=== PATIENT | female | born 1960 | race Caucasian/White ===

== ENCOUNTER 2021-05-26 15:28 | Emergency (ER) | payer BC, OTHER ==
--- NOTE | 2021-05-26 16:19 | EDM.PDOC ---
ED HPI GENERAL MEDICAL PROBLEM - General Chief Complaint: Eye Problems Stated Complaint: FB IN EYE Time Seen by Provider: 05/26/21 15:50 Source of Information: Reports: Patient, RN Notes Reviewed - History of Present Illness INITIAL COMMENTS - FREE TEXT/NARRATIVE: 61 yr old female with onset of FB sensation R eye right after mowing yard, feels like she must have gotten some type of FB into the right eye. Has washed and irrigated eye. FB sensation, quite severe discomfort continues R lateral eye. does not wear contacts. Right Eye Pain Score (Numeric/FACES): 8 - Related Data Allergies Allergy/AdvReac Type Severity Reaction Status Date / Time No Known Allergies Allergy Verified 05/26/21 15:37 Home Meds: Home Meds Pantoprazole [ProTONIX] 40 mg PO DAILY 05/26/21 [History] atorvaSTATin [Lipitor] 20 mg PO DAILY 05/26/21 [History] Past Medical History Cardiovascular History: Reports: High Cholesterol Gastrointestinal History: Reports: GERD, PUD Genitourinary History: Reports: Urinary Incontinence DAIRY NUTRITION SPECIALIST History: Reports: Musculoskeletal History: Reports: Arthritis Neurological History: Reports: Migraines Endocrine/Metabolic History: Reports: Hypothyroidism, Other (See Below) - Past Surgical History HEENT Surgical History: Reports: Oral Surgery, Tonsillectomy GI Surgical History: Reports: Bariatric Procedure, Cholecystectomy Female Surgical History: Reports: Section, Cervical Conization Social & Family History - Tobacco Use Tobacco Use Status *Q: Current Every Day Tobacco User Years of Tobacco use: 45 Packs/Tins Daily: 0.5 - Caffeine Use Caffeine Use: Reports: None - Recreational Drug Use Recreational Drug Use: No - Living Situation & Occupation Living situation: Reports: (), with Family (2 daughters) 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[employer]) ED ROS GENERAL - Review of Systems Review Of Systems: See Below Constitutional: Reports: No Symptoms HEENT: Reports: Eye Pain Respiratory: Reports: No Symptoms Cardiovascular: Reports: No Symptoms GI/Abdominal: Reports: No Symptoms Musculoskeletal: Reports: No Symptoms Skin: Denies: Rash Neurological: Reports: No Symptoms ED EXAM GENERAL W FULL EYE - Physical Exam Exam: See Below General Appearance: Alert, Mild Distress Eye Exam: Bilateral Eye: PERRL Conjunctiva & Sclera: Right: Injected Cornea Exam: Bilateral: Normal Appearance Extraocular Movements: Bilateral: Intact Ears: Normal External Exam Nose: Normal Inspection Head: Atraumatic Neck: Supple Respiratory/Chest: No Respiratory Distress, Lungs Clear Neurological: Alert, Oriented, No Motor/Sensory Deficits Skin Exam: Warm, Dry, Normal Color, No Rash Course - Vital Signs Last Recorded V/S: Last Vital Signs Temp 97 F 05/26/21 15:35 Pulse 71 05/26/21 15:35 Resp 16 05/26/21 15:35 BP 155/89 H 05/26/21 15:35 Pulse Ox 97 05/26/21 15:35 - Orders/Labs/Meds Meds: Medications Discontinued Medications Generic Name Dose Route Start Last Admin Trade Name Freq PRN Reason Stop Dose Admin Sodium Chloride Confirm 05/26/21 16:22 05/26/21 16:33 Normal Saline Administered 05/26/21 16:23 Not Given Dose 250 mls @ as directed .ROUTE .STK-MED ONE Sodium Chloride 250 mls @ 999 mls/hr 05/26/21 16:25 05/26/21 16:25 Normal Saline .XX 999 mls/hr ASDIRECTED GAGE Administration - Re-Assessments/Exams Free Text/Narrative Re-Assessment/Exam: 05/26/21 18:16 no FB visible at time of exam. Have had our nurses further irrigate her eye with 250 ml NS. Discharge instr. as documented. Departure - Departure Time of Disposition: 16:17 Disposition: Home, Self-Care 01 Condition: Fair Clinical Impression: Foreign body, eye Qualifiers: Encounter type: initial encounter Laterality: right Qualified Code(s): T15.91XA - Foreign body on external eye, part unspecified, right eye, initial encounter - Discharge Information Instructions: Eye Foreign Body, [id number] Referrals: Cee Venegas MD [Primary Care Provider] - Forms: ED Department Discharge Additional Instructions: Try not to rub eye. This will take 24 to 48 hours to heal. You may use the anesthetic eye drops, 1 or 2 drops q 2 to 3 hr if needed for severe discomfort. See your eye Dr if not back to normal by Friday as expected. Sepsis Event Note (ED) - Evaluation Sepsis Screening Result: No Definite Risk - Focused Exam Vital Signs: Vital Signs Temp Pulse Resp BP Pulse Ox 05/26/21 15:35 97 F 71 16 155/89 H 97
[2021-05-26] MEDS ORDERED: Sodium Chloride 0.9% 250 ML ONE (16:22)
[2021-05-26] MEDS ORDERED: Sodium Chloride 0.9% 250 ML SCH (16:25)
== END 2021-05-26 16:45 | disposition home or self-care (01) ==
LOC: JD.ED 15:28
DX: T15.91XA Foreign body on external eye, part unspecified, right eye, initial encounter (principal); E78.00 Pure hypercholesterolemia, unspecified; K21.9 Gastro-esophageal reflux disease without esophagitis; Z79.899 Other long term (current) drug therapy; Z72.0 Tobacco use
CPT/HCPCS: 99283; J7050

== ENCOUNTER 2022-01-29 21:53 | Emergency (ER) | payer BC ==
[2022-01-29] MEDS ORDERED: Acetaminophen/HYDROcodone 325-5 MG Tab PO ONE (22:55)
== END 2022-01-29 23:20 | disposition home or self-care (01) ==
LOC: JD.ED 21:53
DX: S52.591A Other fractures of lower end of right radius, initial encounter for closed fracture (principal); S52.614A Nondisplaced fracture of right ulna styloid process, initial encounter for closed fracture; K21.9 Gastro-esophageal reflux disease without esophagitis; Z72.0 Tobacco use; Z79.899 Other long term (current) drug therapy; W22.09XA Striking against other stationary object, initial encounter; Y92.000 Kitchen of unspecified non-institutional (private) residence as the place of occurrence of the external cause
CPT/HCPCS: 29125; 73110; 99283; A9270; 99284

== ENCOUNTER 2022-10-23 14:15 | Emergency (ER) | payer SELFPAY ==
[2022-10-23] MEDS ORDERED: Sodium Chloride 0.9% 10 ML Syringe FLUSH PRN (15:04)
[2022-10-23] MEDS ORDERED: Sodium Chloride 0.9% 1,000 ML IV STA (15:04)
[2022-10-23] MEDS ORDERED: Ondansetron 4 MG/2 ML SDV IVPUSH ONE (15:04)
[2022-10-23] MEDS ORDERED: HYDROmorphone 0.5 MG/0.5 ML Syringe IVPUSH ONE ×2 (15:07→20:14)
[2022-10-23] MEDS ORDERED: Acetaminophen 325 MG Tab PO ONE (16:13)
[2022-10-23 17:31] LABS: CORONAVIRUS COVID-19 NAA NEGATIVE (NEGATIVE)
[2022-10-23] MEDS ORDERED: cefTRIAXone 1 GM in Sodium Chloride 0.9% 100 ML IV ONE (19:42)
== END 2022-10-23 21:20 ==
LOC: JD.ED 14:15
DX: N13.2 Hydronephrosis with renal and ureteral calculous obstruction (principal); N30.01 Acute cystitis with hematuria; N28.9 Disorder of kidney and ureter, unspecified; E78.00 Pure hypercholesterolemia, unspecified; F17.210 Nicotine dependence, cigarettes, uncomplicated; Z79.899 Other long term (current) drug therapy; Z90.49 Acquired absence of other specified parts of digestive tract; Z20.822 Contact with and (suspected) exposure to COVID-19
CPT/HCPCS: 0241U; 36415; 74176; 80053; 81001; 83690; 85025; 87086; 87088; 87186; 96361; 96365; 96375; 96376; 99284; J0696; J1170; J2405; J3490; J7030